=== PATIENT | female | born 1955 | race African-American/Black ===

== ENCOUNTER 2021-10-07 12:03 | Emergency (ER) | payer OTHER ==
[~2021-10-07] VITALS: Ht 170.2 cm; Wt 133.6 kg
--- NOTE | 2021-10-07 12:52 | PHYS DOC ---
Past History Past Medical History: Arthritis (HIRO BRANDON DO) Past Surgical History: Other Additional Past Surgical Histo: anus (RANULFO LACEY APRN) Smoking: Non-smoker Alcohol Use: Rarely Drug Use: None (HIRO BRANDON DO) General Adult EDM: Chief Complaint: KNEE INJURY HPI: HPI: Patient is a 66-year-old female who presents to the emergency department following a fall. Patient reports around 11:00 she was walking and her foot got caught in the cord and she fell forward. She is reporting pain to her anterior aspect of her right knee and her right forehead. She rates her pain 7 out of 10. She denies any loss of consciousness, blood thinner use, nausea, vomiting. She does report that she took 2 aspirins a day for arthritic pain. (RANULFO LACEY APRN) Review of Systems: Review of Systems: HENT: See HPI GI: See HPI Musculoskeletal: See HPI Integument: Reports ecchymosis to forehead and hematoma Neurologic: See HPI (RANULFO LACEY APRN) Allergies: Allergies: Allergies Coded Allergies Type Severity Reaction Last Updated Verified latex Allergy Unknown 10/07/21 Yes (RANULFO LACEY APRN) Physical Exam: PE: Constitutional: Well developed, well nourished, no acute distress, non-toxic appearance. [] HENT: Normocephalic, 2 cm hematoma noted to right forehead with ecchymosis, no lepe sign or raccoon sign, abrasion noted to bridge of nose from glasses, bilateral external ears normal, oropharynx moist, no oral exudates, nose normal. [] Eyes: PERRL, EOMI, conjunctiva normal, no discharge. [] Neck: Normal range of motion, no tenderness, supple, no stridor. [] Cardiovascular normal peripheral perfusion Lungs & Thorax: Normal work of breathing, no tachypnea Abdomen: Soft and obese Skin: Warm, dry, no erythema, no rash. [] Back: No tenderness, normal range of motion Extremities: No tenderness, no cyanosis, no clubbing, ROM intact, no edema. [] Right knee: Swelling and ecchymosis noted to anterior aspect of right knee, no joint laxity, no crepitus, range of motion intact, neuro intact Neurologic: Alert and oriented X 3, normal motor function, normal sensory function, no focal deficits noted. [] Psychologic: Affect normal, judgement normal, mood normal. [] (RANULFO LACEY LINUX UNIX ADMINISTRATOR) Current Patient Data: Vital Signs: Vital Signs Date Time Temp Pulse Resp B/P (MAP) Pulse Ox O2 Delivery O2 Flow Rate FiO2 10/07/21 12:05 96.6 106 18 203/102 (135) 96 Room Air (RANULFO LACEY LINUX UNIX ADMINISTRATOR) EKG: EKG: [] (RANULFO LACEY APRN) Radiology/Procedures: Radiology/Procedures: []PROCEDURE: KNEE RIGHT 3V Right knee 3 views. HISTORY: Pain after a fall, swelling 3 views were taken of the right knee. There is mild arthritis. There is spurring in the medial joint compartment. There is no acute fracture or joint effusion. There is anterior soft tissue swelling. IMPRESSION: 1. Soft tissue swelling. 2. Mild arthritis right knee. 3. No fracture or joint effusion. Electronically signed by: Kamlesh Devlin MD (10/07/2021 1:17 PM) [id number] CT HEAD AND C-SPINE WO Indication: Reason: fall / Spl. Instructions: / History: . One or more of the following dose reduction techniques were utilized: *Automated exposure control (AEC) *Adjustment of mA and/or kV according to patient size *Use of iterative reconstruction technique *CT scan done according to ALARA, or ALARA/IMAGE GENTLY EXAMINATION: CT OF THE HEAD WITHOUT CONTRAST INDICATION: Trauma, head injury, headache; TECHNIQUE: Noncontrast helical axial CT images of the head were obtained. FINDINGS: The ventricles and sulci are normal for the patient's stated age. There is no evidence of acute intracranial hemorrhage, extra-axial collection, mass effect, midline shift, or acute territorial infarct. No lesion of the skull base or the calvarium is seen. The visualized paranasal sinuses, mastoid air cells, and orbits are normal in appearance. IMPRESSION: No evidence for acute intracranial abnormality. EXAMINATION: CT OF THE CERVICAL SPINE WITHOUT CONTRAST Clinical Indication: Cervical spine pain after trauma Technique: Thin cut helical axial CT images through the cervical spine were obtained without contrast on a multi-detector CT scanner. Source data was then reconstructed into sagittal and coronal planes. Findings: Alignment is maintained without spondylolisthesis. Vertebral body heights are maintained without acute fracture. Disc spaces are preserved. No significant prevertebral soft tissue swelling is demonstrated. No severe osseous central canal stenosis is seen. Impression: No evidence of acute cervical spine fracture or subluxation. Electronically signed by: Jaleel Christopher MD (10/07/2021 1:30 PM) [facility] DICTATED AND SIGNED BY: JALEEL CHRISTOPHER MD DATE: 10/07/21 1320 CC: MONIQUE GUARDADO MD; RANULFO LACEY APRN ~ DICTATED AND SIGNED BY: KAMLESH DEVLIN MD DATE: 10/07/21 1317 CC: MONIQUE GUARDADO MD; EMERGENCY,DEPARTMENT; RANULFO LACEY APRN ~ (RANULFO LACEY APRN) Heart Score: C/O Chest Pain: N/A Risk Factors: Risk Factors: DM, Current or recent (<one month) smoker, HTN, HLP, family history of CAD, obesity. Risk Scores: Score 0 - 3: 2.5% MACE over next 6 weeks - Discharge Home Score 4 - 6: 20.3% MACE over next 6 weeks - Admit for Clinical Observation Score 7 - 10: 72.7% MACE over next 6 weeks - Early Invasive Strategies (RANULFO LACEY APRN) Course & Med Decision Making: Course & Med Decision Making Pertinent Labs and Imaging studies reviewed. (See chart for details) [] Patient presents to the emergency department following a fall with complaints of right forehead and knee pain. Imaging was performed in the ER. The x-ray shows arthritic changes and soft tissue swelling but no acute fracture. Patient's knee was placed in an Parvez wrap. CT imaging of head and neck showed no acute findings. Patient educated on the RICE protocol. She is advised to take Tylenol and ibuprofen at home for pain. I discussed with patient all findings and diagnostic testing as well as the need to follow-up with PCP for further evaluation and treatment or return to the ER if any new or worsening symptoms. Strict return precautions were also discussed at length. Patient voiced understanding and agreement with the plan. Patient is hemodynamically stable at the time of disposition. (RANULFO LACEY LINUX UNIX ADMINISTRATOR) Dragon Disclaimer: Dragon Disclaimer: This electronic medical record was generated, in whole or in part, using a voice recognition dictation system. (RANULFO LACEY APRN) Departure Departure: Impression: Primary Impression: Fall Qualified Codes: W19.XXXA - Unspecified fall, initial encounter Additional Impression: Knee pain Qualified Codes: M25.561 - Pain in right knee Disposition: HOME / SELF CARE / HOMELESS Condition: GOOD Referrals: MONIQUE GUARDADO MD (PCP) Patient Instructions: Fall Prevention and Home Safety, [id number], Head Injury, Adult, [id number], RICE - Routine Care for Injuries Additional Instructions: You were seen in the emergency department following a fall with complaints of knee pain and head pain. Your imaging did not not show any acute findings. You were noted to have arthritic changes in your right knee. Your knee was placed in an Parvez wrap. Your symptoms will likely improve over time. Your symptoms may be improved by something called the rice protocol. This is rest, ice, compression, elevation. Please follow-up when doing intense exercises that may make the pain worse. Sometimes gentle stretching can provide relief, but be careful to injury. It is important to perform gentle range of motion exercises to prevent stiff joints and chronic pain. Use ice packs over the affected areas to help decrease your pain. For the first 24 hours you can apply ice 20 minutes on 20 minutes off for 4 times per day. Sometimes compression such as the use of an Parvez wrap can help with the swelling. You may also elevate the affected area to help with the swelling. You can also apply ice to your forehead. Take Tylenol and ibuprofen at home for pain. Follow-up with your primary care provider tomorrow regarding your ER visit. Return to the emergency department if you develop any new injuries, worsening of your pain, confusion, poor coordination, difficulty bearing weight or walking, neck or back pain, loss of bowel or bladder, numbness or tingling in your groin or down your legs, intractable nausea or vomiting, neurological changes or any new or worsening concerns. Attending Signature Attending Signature I have reviewed the PA/CLIENT ASSOCIATE's note and plan of care. I was available for consultation as needed during the patient's visit in the emergency department. I agree with the clinical impression, plan, and disposition. (HIRO BRANDON DO) RANULFO LACEY LINUX UNIX ADMINISTRATOR Oct 07, 2021 12:52 HIRO BRANDON DO Oct 07, 2021 13:41
--- NOTE | 2021-10-07 13:20 | RAD ---
Right knee 3 views. HISTORY: Pain after a fall, swelling 3 views were taken of the right knee. There is mild arthritis. There is spurring in the medial joint compartment. There is no acute fracture or joint effusion. There is anterior soft tissue swelling. IMPRESSION: 1. Soft tissue swelling. 2. Mild arthritis right knee. 3. No fracture or joint effusion. Electronically signed by: Kamlesh Devlin MD (10/07/2021 1:17 PM) [id number]
--- NOTE | 2021-10-07 13:32 | RAD ---
Exam Date: 10/07/2021 12:[address] HEAD AND C-SPINE WO Indication: Reason: fall / Spl. Instructions: / History: . One or more of the following dose reduction techniques were utilized: *Automated exposure control (AEC) *Adjustment of mA and/or kV according to patient size *Use of iterative reconstruction technique *CT scan done according to ALARA, or ALARA/IMAGE GENTLY EXAMINATION: CT OF THE HEAD WITHOUT CONTRAST INDICATION: Trauma, head injury, headache; TECHNIQUE: Noncontrast helical axial CT images of the head were obtained. FINDINGS: The ventricles and sulci are normal for the patient's stated age. There is no evidence of acute int racranial hemorrhage, extra-axial collection, mass effect, midline shift, or acute territorial infarc t. No lesion of the skull base or the calvarium is seen. The visualized paranasal sinuses, mastoid ai r cells, and orbits are normal in appearance. IMPRESSION: No evidence for acute intracranial abnormality. EXAMINATION: CT OF THE CERVICAL SPINE WITHOUT CONTRAST Clinical Indication: Cervical spine pain after trauma Technique: Thin cut helical axial CT images through the cervical spine were obtained without contrast on a multi-detector CT scanner. Source data was then reconstructed into sagittal and coronal planes. Findings: Alignment is maintained without spondylolisthesis. Vertebral body heights are maintained without acute fracture. Disc spaces are preserved. No signific ant prevertebral soft tissue swelling is demonstrated. No severe osseous central canal stenosis is se en. Impression: No evidence of acute cervical spine fracture or subluxation. Electronically signed by: Tim Christopher MD (10/07/2021 1:30 PM) [facility]
[2021-10-07] MEDS ORDERED: HYDROcodone/APAP 5/325MG 1 TAB TABLET PO ONE (13:45)
[2021-10-07 14:00] VITALS: BP 196/108
== END 2021-10-07 14:10 | disposition home or self-care (01) ==
LOC: ER 12:03
DX: S80.01XA Contusion of right knee, initial encounter (principal); S00.83XA Contusion of other part of head, initial encounter; S00.31XA Abrasion of nose, initial encounter; M19.90 Unspecified osteoarthritis, unspecified site; Z91.040 Latex allergy status; W18.39XA Other fall on same level, initial encounter; Y93.01 Activity, walking, marching and hiking; Y92.89 Other specified places as the place of occurrence of the external cause; Y99.8 Other external cause status
CPT/HCPCS: 70450; 72125; 73562; 99284